=== PATIENT | female | born 1960 | race Caucasian/White ===

== ENCOUNTER → 2019-09-24 | Outpatient (CLI) | payer BC ==
--- NOTE | 2019-09-24 13:15 | PCVCIMAG ---
APPROVED REPORT Study performed: 09/24/2019 11:01:33 EXAM: Comprehensive 2D, Doppler, and color-flow Echocardiogram Patient Location: Echo lab Status: routine BSA: 2.24 HR: 68 bpmBP: 122/80 mmHg Rhythm: NSR Other Information Study Quality: Technically Difficult Risk Factors: Cardiac Risk Factors: HTN, Hyperlipidemia Indications Atrial Fibrillation CAD Breast Cancer 2D Dimensions IVSd: 9.49 (7-11mm)LVOT Diam: 18.27 (18-24mm) LVDd: 48.77 mm PWd: 10.53 (7-11mm)Ascending Ao: 33.86 (22-36mm) LVDs: 31.28 (25-40mm) Left Atrium: 43.17 (27-40mm) Aortic Root: 26.22 mm LV Single Plane 4CH: 48.58 % Volumes Left Atrial Volume (Systole) Single Plane 4CH: 71.05 mLSingle Plane 2CH: 77.75 mL LA ESV Index: 38.00 mL/m2 Aortic Valve AoV Peak Zaid.: 1.20 m/s AO Peak Gr.: 6.33 mmHgLVOT Max P.19 mmHg LVOT Max V: 0.88 m/s YOMI Vmax: 1.93 cm2 Mitral Valve E/A Ratio: 0.9 MV Decel. Time: 2960.44 ms MV E Max Zaid.: 1.08 m/s MV A Zaid.: 1.14 m/s Pulmonary Valve PV Peak Gr.: 3.38 mmHg Tricuspid Valve TR Peak Zaid.: 2.98 m/s TR Peak Gr.: 35.45 mmHg Left Ventricle The left ventricle is normal size. There is normal LV segmental wall motion. There is normal left ventricular wall thickness. Left ventricular systolic function is normal. The left ventricular ejection fraction is within the normal range. LVEF is >55%. Right Ventricle Right ventricle is at the upper limits of normal. The right ventricular systolic function is normal. Atria The left atrium size is normal. The right atrium size is normal. Aortic Valve The aortic valve is normal in structure. No aortic regurgitation is present. There is no aortic valvular stenosis. Mitral Valve The mitral valve is normal in structure. There is no mitral valve regurgitation noted. No evidence of mitral valve stenosis. Tricuspid Valve The tricuspid valve is normal in structure. Trace tricuspid regurgitation. Pulmonary artery pressure is 42mmHg. Pulmonic Valve The pulmonary valve is normal in structure. There is no pulmonic valvular regurgitation. Great Vessels The aortic root is normal in size. IVC is normal in size and collapses >50% with inspiration. Pericardium There is no pericardial effusion. <Conclusion> The left ventricle is normal size. LVEF is >55%. Right ventricle is at the upper limits of normal. The left atrium size is normal. The aortic valve is normal in structure. There is no mitral valve regurgitation noted. Trace tricuspid regurgitation. Pulmonary artery pressure is 42mmHg. The aortic root is normal in size. There is no pericardial effusion.
== END | disposition home or self-care (01) ==
LOC: PCVCIMAG 10:09
PROVIDERS: ATTEND Internal Medicine Cardiovascular Disease
DX: I25.10 Atherosclerotic heart disease of native coronary artery without angina pectoris (principal); I48.91 Unspecified atrial fibrillation; C50.919 Malignant neoplasm of unspecified site of unspecified female breast; I10 Essential (primary) hypertension; E78.00 Pure hypercholesterolemia, unspecified; E78.5 Hyperlipidemia, unspecified; E03.9 Hypothyroidism, unspecified; R06.02 Shortness of breath; R53.83 Other fatigue; R07.9 Chest pain, unspecified; Z98.890 Other specified postprocedural states; Z87.891 Personal history of nicotine dependence; Z72.89 Other problems related to lifestyle; Z79.899 Other long term (current) drug therapy; Z88.8 Allergy status to other drugs, medicaments and biological substances
CPT/HCPCS: 93306